=== PATIENT | male | born 1995 | race Two or more races ===

== ENCOUNTER → 2017-05-22 | Outpatient (CLI) | payer OTHER | LOC: M LRY 15:37 | DX: M25.512 Pain in left shoulder (principal) | CPT/HCPCS: G0463 ==

== ENCOUNTER 2018-09-27 12:13 | Emergency (ER) | payer OTHER ==
[~2018-09-27] VITALS: Ht 182.9 cm; Wt 90.9 kg
[2018-09-27] MEDS ORDERED: TETRACAINE 0.5% OPHTH SOLN 4ML OU ONE (13:00)
[2018-09-27] MEDS ORDERED: METOCLOPRAMIDE INJ 10MG/2ML VIAL (J2765) IV ONE (13:00)
[2018-09-27] MEDS ORDERED: KETOROLAC 30 MG/ML VIAL (J1885) IV ONE (13:00)
[2018-09-27 13:39] LABS: HEMATOCRIT 44.4 % (42.0-52.0); MEAN CORPUSCULAR HEMOGLOBIN 28.5 pg (27.0-33.0); MEAN CORPUSCULAR HGB CONC 33.8 g/dl (32.0-36.5); MEAN CORPUSCULAR VOLUME 84.4 fl (80.0-96.0); PLATELET COUNT, AUTOMATED 151 10^3/uL (150-450); RED BLOOD COUNT 5.26 10^6/uL (4.30-6.10); WHITE BLOOD COUNT 3.6 10^3/uL (4.0-10.0)
[2018-09-27 14:04] LABS: BLOOD UREA NITROGEN 12 MG/DL (7-18); C REACTIVE PROTEIN QUANTITATIV 0.71 MG/DL (0.00-0.30); CALCIUM LEVEL 9.1 MG/DL (8.5-10.1); CARBON DIOXIDE LEVEL 29 MEQ/L (21-32); CHLORIDE LEVEL 104 MEQ/L (98-107); CREATININE FOR GFR 1.26 MG/DL (0.70-1.30); GLOMERULAR FILTRATION RATE > 60.0 (>60); GLUCOSE, FASTING 90 MG/DL (70-100); POTASSIUM SERUM 3.8 MEQ/L (3.5-5.1); SODIUM LEVEL 138 MEQ/L (136-145)
[2018-09-27 14:14] LABS: ERYTHROCYTE SEDIMENTATION RATE 3 mm/hr (0-15)
[2018-09-27 14:23] LABS: ATYPICAL LYMPH 5 % (0-5); LYMPHOCYTES 25 % (16-52); MONOCYTES 12 % (0-8); NEUTROPHILS 58 % (35-75); PLATELET ESTIMATE NORMAL (NORMAL)
[2018-09-27] MEDS ORDERED: PROHANCE 279.3MG/ML 15ML VIAL (A9576) As Ordered ONE (14:53)
[2018-09-27] MEDS ORDERED: ONDANSETRON 4MG/2ML VIAL (J2405) IV ONE (16:15)
[2018-09-27] MEDS: MORPHINE 4 MG/ML 1ML VIAL/SYRINGE (J2270) IV PRN ×2 (16:38→18:09)
--- NOTE | 2018-09-27 16:48 | REP ---
MR orbits without and with contrast History: Right orbital headache Contrast: ProHance 18 ml The globes, optic nerves and rectus muscles are normal in appearance. There is no orbital lesion. There is no abnormal enhancement. The pituitary gland , cavernous sinuses, optic chiasm and hypothalamus are normal in appearance. The visualized sinuses are clear. Impression: There is no orbital lesion. Electronically Signed by Luan Griffith MD 09/27/2018 04:39 P
--- NOTE | 2018-09-27 16:58 | REP ---
MR BRAIN WITHOUT CONTRAST: HISTORY: Right orbital headache. There are no areas of abnormal signal intensity in the brain. There is no intraparenchymal hemorrhage, infarct, mass or midline shift. The ventricular system is normal in appearance. There is no extracerebral collection. The visualized sinuses are clear. IMPRESSION: There is no intracranial lesion. Electronically Signed by Luan Griffith MD 09/27/2018 04:59 P
[2018-09-27] MEDS ORDERED: SUMAtriptan SUCCINATE 6 MG/0.5 ML VIAL SC ONE (17:45)
[2018-09-27] MEDS ORDERED: NS 1,000 ML IV ONE (18:15)
[2018-09-27] MEDS ORDERED: dexameTHASONE 20 MG/5 ML VIAL (J1100) IV ONE (18:30)
[2018-09-27] MEDS ORDERED: MAG SULF 1GM/100ML (MAG RUN) 1 GM in APPROPRIATE DILUENT 1 EA IV ONE (18:45)
[2018-09-27] MEDS ORDERED: diphenhydrAMINE INJ 50MG/ML VIAL (J1200) IV ONE (18:45)
--- NOTE | 2018-09-27 19:36 | ED PDOC ---
Post-Departure Follow-Up IOP right eye was 5 and left eye was 9 mm Hg via tonometer Danette Cope PA-C September 27, 2018 19:36
[2018-09-27] MEDS ORDERED: IMIT50TA PO (19:37)
[2018-09-27] MEDS ORDERED: ZOFR8TAB24 PO (19:37)
[2018-09-27 20:09] VITALS: BP 137/65
== END 2018-09-27 20:30 | disposition home or self-care (01) ==
LOC: M ED 12:13
DX: R51 Headache (principal); D72.819 Decreased white blood cell count, unspecified
CPT/HCPCS: 70543; 70551; 80048; 85025; 85652; 86140; 96365; 96375; 96376; 99284; A9576; J1100; J1200; J1885; J2270; J2405; J2765; J3475